=== PATIENT | female | born 1950 | race Hispanic/Latino ===

== ENCOUNTER 2017-04-08 11:11 | Emergency (ER) | payer MEDICARE ==
[~2017-04-08] VITALS: Ht 157.5 cm; Wt 90.7 kg
--- NOTE | 2017-04-08 12:22 | Diagnostic Imaging Report ---
HUMERUS LEFT 2+VIEWS HISTORY: Fall. COMPARISON: None available. FINDINGS: Bones: Minimally displaced fracture of the greater tuberosity of the left humerus. Osseous alignment is within normal limits. Joints: The joint spaces are well-maintained. Soft tissues: The soft tissues appear unremarkable. IMPRESSION: Minimally displaced fracture of the greater tuberosity. Signed by: DR. Shad Dacosta MD on 04/08/2017 12:19 PM
--- NOTE | 2017-04-08 12:41 | Diagnostic Imaging Report ---
SHOULDER LEFT COMPLETE HISTORY: Fall. COMPARISON: Same day left humerus radiographs FINDINGS: Bones: Minimally displaced fracture of the greater tuberosity. Osseous alignment is within normal limits. Joints: The joint spaces are well-maintained. Soft tissues: The soft tissues appear unremarkable. IMPRESSION: Minimally displaced fracture of the greater tuberosity. Signed by: DR. Shad Dacosta MD on 04/08/2017 12:37 PM
[2017-04-08 12:44] VITALS: BP 147/84
== END 2017-04-08 13:05 | disposition home or self-care (01) ==
LOC: ER 11:11
DX: S00.83XA Contusion of other part of head, initial encounter (principal); M25.512 Pain in left shoulder; S42.252A Displaced fracture of greater tuberosity of left humerus, initial encounter for closed fracture; W18.30XA Fall on same level, unspecified, initial encounter; Y92.008 Other place in unspecified non-institutional (private) residence as the place of occurrence of the external cause
CPT/HCPCS: 99283

== ENCOUNTER 2017-05-18 08:00 | Outpatient (RCR) | payer MEDICARE | END 2017-05-20 | LOC: PT 08:00 | PROVIDERS: ATTEND Specialist | DX: S42.225D 2-part nondisplaced fracture of surgical neck of left humerus, subsequent encounter for fracture with routine healing (principal); M25.512 Pain in left shoulder; M25.612 Stiffness of left shoulder, not elsewhere classified; M62.81 Muscle weakness (generalized) | CPT/HCPCS: 97010; 97110 ×3; 97161; G8984; G8985 ==

== ENCOUNTER 2017-06-05 07:55 | Outpatient (RCR) | payer MEDICARE | END 2017-06-20 | LOC: PT 07:55 | PROVIDERS: ATTEND Specialist | DX: S42.225D 2-part nondisplaced fracture of surgical neck of left humerus, subsequent encounter for fracture with routine healing (principal); M25.512 Pain in left shoulder; M25.612 Stiffness of left shoulder, not elsewhere classified; M62.81 Muscle weakness (generalized) ==

== ENCOUNTER → 2018-10-21 | Outpatient (CLI) | payer MEDICARE ==
[~2018-10-21] MED LIST: GADOBENATE DIMEGLUMINE 1 ML IV ONE
[2018-10-21 08:42] LABS: BLOOD UREA NITROGEN 13 mg/dL (7-26); BUN/CREATININE RATIO 19 (6-25); EST GLOMERULAR FILTRATION RATE > 60 ML/MIN (60-)
--- NOTE | 2018-10-21 13:48 | Diagnostic Imaging Report ---
MRI BRAIN WOW HISTORY: Double vision COMPARISON: None. TECHNIQUE: Multiplanar, multisequence MRI of the brain (including diffusion-weighted imaging) was performed before and after the administration of intravenous, gadolinium based contrast. 20 mL of MultiHance were administered. DISCUSSION: Scalp/bone marrow: Unremarkable. Brain sulci: Appropriate for patient's age. Ventricles: Normal in size and configuration. No hydrocephalus. Extra-axial spaces: No masses or fluid collections. Parenchyma: Scattered T2/FLAIR hyperintense foci throughout the supratentorial white matter are likely chronic microvascular ischemic changes. Otherwise, no mass, hemorrhage, or acute vascular insults. No abnormal parenchymal, leptomeningeal, or dural enhancement is seen. Vessels: Normal flow voids in major arteries and veins. Sellar/Suprasellar region: No abnormalities. Craniocervical junction: No abnormalities. Incidental findings: None. IMPRESSION: 1. No acute intracranial abnormalities. 2. Mild supratentorial chronic microvascular ischemic change. Signed by: Dr. Rashawn Choi M.D. on 10/21/2018 1:45 PM
== END ==
LOC: MRI 07:59
PROVIDERS: ATTEND Psychiatry & Neurology Neurology
DX: R25.1 Tremor, unspecified (principal); H53.2 Diplopia; H53.8 Other visual disturbances; R41.3 Other amnesia
CPT/HCPCS: 36415; 70553; 82565; 84520; A9577

== ENCOUNTER 2019-04-30 12:49 | Emergency (ER) | payer MEDICARE ==
[~2019-04-30] VITALS: Ht 157.5 cm; Wt 90.7 kg
--- OUTSIDE RECORDS SUMMARY | 2019-04-30 12:52 | XMS REPORT ---
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 Allergies, Adverse Reactions, Alerts This patient has no known allergies or adverse reactions. Medications This patient has no known medications. Results Test Description Test Time Test Comments Text Results Atomic Results Result Comments MRI BRAIN WOW 2018-10-21 13:41:00 [place] [address] Patient Name: ENMANUEL ERAZO MR #: [id number] : 1950 Age/Sex: 68/F Req #: [id number] Adm Physician: Ordered by: SAUL HERNANDEZ MD Report #: [id number] Location: MRI Room/Bed: Procedure: [id number] MRI/MRI BRAIN WOW Exam Date: Exam Time: REPORT STATUS: Signed MRI BRAIN WOW HISTORY: Double vision COMPARISON: None. TECHNIQUE: Multiplanar, multisequence MRI of the brain (including diffusion- weighted imaging) was performed before and after the administration of intravenous, gadolinium based contrast. 20 mL of MultiHance were administered. DISCUSSION: Scalp/bone marrow: Unremarkable. Brain sulci: Appropriate for patient's age. Ventricles: Normal in size and configuration. No hydrocephalus. Extra-axial spaces: No masses or fluid collections. Parenchyma: Scattered T2/FLAIR hyperintense foci throughout the supratentorial white matter are likely chronic microvascular ischemic changes. Otherwise, no mass, hemorrhage, or acute vascular insults. No abnormal parenchymal, leptomeningeal, or dural enhancement is seen. Vessels: Normal flow voids in major arteries and veins. Sellar/Suprasellar region: No abnormalities. Craniocervical junction: No abnormalities. Incidental findings: None. IMPRESSION: 1. No acute intracranial abnormalities. 2. Mild supratent orial chronic microvascular ischemic change. Signed by: Dr. Rashawn Choi M.D. on 10/21/2018 1:45 PM Dictated By: RASHAWN CHOI MD 134 Transcribed By: DELMY on 10/21/18 134 COPY TO: SAUL HERNANDEZ MD HUMERUS LEFT 2+VIEWS [place] [address] Patient Name: ENMANUEL ERAZO MR #: [id number] : 1950 Age/Sex: 66/F Req #: [id number] Adm Physician: Ordered by: ISELA PUCKETT MD Report #: [id number] Location: ER Room/Bed: Procedure: [id number] DX/HUMERUS LEFT 2+VIEWS Exam Date: 04/08/17 Exam Time: 1145 REPORT STATUS: Signed HUMERUS LEFT 2+VIEWS HISTORY: Fall. COMPARISON: None available. FINDINGS: Bones: Minimally displaced fracture of the greater tuberosity of the left humerus. Osseous alignment is within normal limits. Joints: The joint spaces are well-maintained. Soft tissues: The soft tissues appear unremarkable. IMPRESSION: Minimally displaced fracture of the greater tuberosity. Signed by: DR. Shad Brooks MD on 04/08/2017 12:19 PM Dictated By: SHAD BROOKS MD 18 Transcribed By: DELMY on 04/08/171218 COPY TO: ISELA PUCKETT MD SHOULDER LEFT COMPLETE [place] [address] Patient Name: ENMANUEL ERAZO MR #: [id number] : 1950 Age/Sex: 66/F Req #: [id number] Adm Physician: Ordered by: ISELA PUCKETT MD Report #: [id number] Location: ER Room/Bed: Procedure: [id number] DX/SHOULDER LEFT COMPLETE Exam Date: 04/08/17 Exam Time: 1145 REPORT STATUS: Signed SHOULDER LEFT COMPLETE HISTORY: Fall. COMPARISON: Same day left humerus radiographs FINDINGS: Bones: Minimally displaced fracture of the greater tuberosity. Osseous alignment is within normal limits. Joints: The joint spaces are well-maintained. Soft tissues: The soft tissues appear unremarkable. IMPRESSION: Minimally displaced fracture of the greater tuberosity. Signed by: DR. Shad Brooks MD on 04/08/2017 12:37 PM Dictated By: SHAD BROOKS MD 123 Transcribed By: DELMY on 04/08/171236 COPY TO: ISELA PUCKETT MD KNEE RIGHT 1-2 VIEWS [place] [address] Patient Name: ENMANUEL ERAZO MR #: [id number] : 1950 Age/Sex: 66/F Req #: [id number] Adm Physician: Ordered by: DANYA FREED Report #: [id number] Location: RAD Room/Bed: Procedure: [id number] DX/KNEE RIGHT 1-2 VIEWS Exam Date: 12/03/16 Exam Time: 839 REPORT STATUS: Signed PROCEDURE: X-RAY RIGHT KNEE, ONE OR TWO VIEWS COMPARISON: None. INDICATIONS: KNEE PAIN FINDINGS: The bones are well- mineralized. There are no acute displaced fractures, dislocations, lytic or blastic lesions. Joint spaces are relatively well-preserved. Minimal osteophytosis of the patella. There is no evidence of a joint effusion. CONCLUSION: No acute abnormalities. Foster James M.D. Dictated by: Foster James M.D. on 12/03/2016 at 12:40 Electronically approved by: Foster James M.D. on 12/03/2016 at 12:40 Dictated By: FOSTER JAMES MD 1240 Transcribed By: NIDIA on 12/03/16 1240 COPY TO: DANYA FREED KNEES STANDING AP VIEW [place] [address] Patient Name: ENMANUEL ERAZO MR #: [id number] : 1950 Age/Sex: 66/F Req #: [id number] Adm Physician: Ordered by: DANYA FREED Report #: [id number] Location: RAD Room/Bed: Procedure: [id number] DX/KNEES STANDING AP VIEW Exam Date: 12/03/16 Exam Time: 0840 REPORT STATUS: Signed PROCEDURE: KNEES STANDING AP VIEW COMPARISON: None. INDICATIONS: ARTHRITIS, KNEE PAIN FINDINGS: Normal mineralization. No acute displaced fracture or dislocation in this single AP view. Joint spaces are relatively well-preserved. No significant subluxation. No lytic or blastic lesions. CONCLUSION: No acute abnormalities. Foster James M.D. Dictated by: Foster James M.D. on 12/03/2016 at 12:41 Electronically approved by: Foster James M.D. on 12/03/2016 at 12:41 Dictated By: FOSTER JAMES MD 1241 Transcribed By: NIDIA on 12/03/16 1241 COPY TO: DANYA FREED
[2019-04-30] MEDS ORDERED: DEXAMETHASONE SOD PHOS 10 MG/1 ML VIAL IM ONE (13:15)
[2019-04-30] MEDS ORDERED: HYDROCODONE/APAP 10MG-325MG TAB PO ONE (13:15)
[2019-04-30] MEDS ORDERED: DEXAMETHASONE SOD PHOS 10 MG/1 ML VIAL ONE (13:19)
[2019-04-30] MEDS ORDERED: HYDROCODONE/APAP 10MG-325MG TAB ONE (13:19)
--- NOTE | 2019-04-30 14:18 | Diagnostic Imaging Report ---
Exam: Left knee 3 views History: Pain Comparison: None. Findings: No fracture or malalignment. Joint line osteophytes. No narrowing. Small joint effusion. Impression: No acute osseous abnormality Signed by: Dr. Jorge Luis Koenig M.D. on 04/30/2019 2:15 PM
--- NOTE | 2019-04-30 15:46 | NUR ---
PT TOOK HOME MEDICATION, 1 TAB 25MG METROPOLOL FOR ELEVATED BP. 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 PT TOLERATED WELL.
--- NOTE | 2019-04-30 15:53 | NUR ---
PER ER MD, PT IS ABLE TO GO HOME. PT IN NO ACUTE DISTRESS AT THIS TIME. PT STATES SHE DID NOT TAKER HER MORNING DOSE OF BP MEDICATION.
== END 2019-04-30 15:54 | disposition home or self-care (01) ==
LOC: ER 12:49
DX: M25.562 Pain in left knee (principal); I10 Essential (primary) hypertension
CPT/HCPCS: 73562; 99283; J1100